=== PATIENT | male | born 1980 | race Caucasian/White ===

== ENCOUNTER 2019-02-15 08:05 | Emergency (ER) | payer SELFPAY ==
[~2019-02-15] VITALS: Ht 162.6 cm; Wt 83.9 kg
[2019-02-15 08:07] VITALS: Ht 162.6 cm; Wt 83.9 kg
[2019-02-15 08:42] LABS: BASOPHIL % 0.6 % (0-2); RED CELL DISTRIBUTION WIDTH 13.4 % (11.5-14.5)
[2019-02-15 08:52] LABS: CALCIUM 8.7 mg/dL (8.5-10.1); CARBON DIOXIDE 24.6 mmol/L (21-32); CHLORIDE SERUM 99 mmol/L (98-107); CREATININE SERUM 0.9 mg/dL (0.7-1.3); GFR1 > 60 mL/min; GLUCOSE SERUM 97 mg/dL (74-106); PLATELET COUNT 428 x10^3mcL (130-400); POTASSIUM SERUM 3.8 mmol/L (3.5-5.1); SODIUM SERUM 138 mmol/L (136-145)
[2019-02-15 08:57] LABS: ALBUMIN 3.8 g/dL (3.4-5.0); ALKALINE PHOSPHATASE 87 U/L (46-116); ALT/SGPT 48 U/L (16-63); AST/SGOT 43 U/L (15-37); BILIRUBIN TOTAL 1.4 mg/dL (0.20-1.00); LIPASE 95 IU/L (73-393); TOTAL PROTEIN, SERUM 7.7 g/dL (6.4-8.2)
[2019-02-15 11:04] VITALS: BP 143/89
== END 2019-02-15 11:04 | disposition home or self-care (01) ==
LOC: ED 08:05
PROVIDERS: Emergency Medicine
DX: K29.20 Alcoholic gastritis without bleeding (principal)
CPT/HCPCS: J1885; J7030; Q0092